=== PATIENT | male | born 1930 | race African-American/Black ===

== ENCOUNTER 2021-03-06 22:48 | Inpatient (IN) | payer MEDICARE ==
[2021-03-06] MEDS ORDERED: Propofol 1,000 MG/100 ML VIAL IV ONE (22:56)
[2021-03-06] MEDS ORDERED: Fentanyl CADD 100 ML IV SCH (23:00)
[2021-03-07] MEDS ORDERED: Furosemide 40 MG/4 ML VIAL ONE (00:12)
[2021-03-07] MEDS ORDERED: Aspirin 300 MG Suppository ONE (00:12)
[2021-03-07] MEDS ORDERED: Ondansetron PF 4 MG/2 ML Vial IVP PRN (01:03)
[2021-03-07] MEDS ORDERED: Ondansetron ODT 4 MG TAB PO PRN (01:03)
[2021-03-07] MEDS ORDERED: Acetaminophen 325 MG TAB PO PRN (01:03)
[2021-03-07] MEDS ORDERED: Acetaminophen 650 MG Suppository PR PRN (01:03)
[2021-03-07] MEDS ORDERED: Morphine 2 MG/ML VIAL SLOW IVP PRN (01:15)
[2021-03-07] MEDS ORDERED: Dextrose 5 % And 0.9 % NaCl 1,000 ML IV SCH (01:15)
[2021-03-07] MEDS ORDERED: Propofol BOLUS 1,000 MG/100 ML VIAL IV PRN (01:15)
[2021-03-07] MEDS ORDERED: DISCONTINUE PREVIOUS NARCOTIC PAIN MEDICATIONS AND BENZODIAZEPINES FS SCH (01:15)
[2021-03-07] MEDS ORDERED: Fentanyl BOLUS 250 ML IVPB PRN (01:15)
[2021-03-07] MEDS ORDERED: Propofol 1,000 MG/100 ML VIAL IV PRN (01:15)
[2021-03-07] MEDS ORDERED: Ventilator Sedation Protocol 1 EACH FS SCH (01:30)
[2021-03-07 02:52] LABS: Actual Bicarbonate (HCO3a) 19.4 mEq/L (22-28); Base Excess (BEa) -4.7 mEq/L (-2.0 to +3.0); CO2 Tension 32.5 mmHg (35.0-45.0); Calcium, Ionized (arterial) 1.15 mmol/L (1.12-1.30); Hemoglobin (Hb) 10.3 g/dL (14.0-18.0); O2 Tension (PaO2), arterial 77.7 mmHg (> 60.0); Potassium - ABG Lab 5.17 mmol/L (3.70-5.30); pH, Arterial 7.39 (7.35-7.45)
[2021-03-07 02:53] LABS: ALV-art Gradient 309.475 mmHg (0-20); Puncture Site LRA
[2021-03-07] MEDS: Piperacillin/Tazobactam 3.375 GM in Sodium Chloride 0.9% 100 ML IVPB SCH ×4 (02:53→20:38)
[2021-03-07 03:01] LABS: #Lymphocytes 0.6 thou/uL (1.20-3.40); #Neutrophils 12.4 thou/uL (1.40-6.50); %Basophils 0.3 % (0.0-1.0); %Eosinophils 0.1 % (0.0-10.0); %Monocytes 7.4 % (0.0-10.0); %Neutrophils 88.3 % (42.0-75.0); Hemoglobin 9.7 g/dL (14.0-18.0); Mean Corpuscular HGB CONC 31.2 g/dL (32.0-36.0); Mean Corpuscular Hemoglobin 27.8 pg (27.0-31.0); Mean Corpuscular Volume 89.3 fL (78.0-98.0); Mean Platelet Volume 8.7 fL (7.4-10.4); Platelet Count 182 thou/uL (130-400); Red Blood Cell (RBC) Count 3.47 mill/uL (4.70-6.10)
[2021-03-07 03:23] LABS: Lactic Acid 1.9 mmol/L (0.5-2.2)
[2021-03-07] MEDS: Azithromycin 500 MG in Sodium Chloride 0.9% 250 ML 250 ML IVPB SCH (03:39)
[2021-03-07 03:42] LABS: Troponin I 11.677 ng/mL (< 0.028)
[2021-03-07 03:52] LABS: Anion Gap 17 mmol/L (10-20); BUN (Urea Nitrogen) 47 mg/dL (8.4-25.7); Calc. Creatinine Clearance 11 mL/min (70-130); Calcium 8.5 mg/dL (7.8-10.44); Carbon Dioxide 20 mmol/L (23-31); Chloride 107 mmol/L (98-107); Glucose 162 mg/dL (83-110); Potassium 5.3 mmol/L (3.5-5.1); Sodium 139 mmol/L (136-145)
[2021-03-07] MEDS ORDERED: Heparin 25,000 units/D5W 500 ML IVPB SCH (04:00)
[2021-03-07] MEDS: Heparin 25,000 units/D5W 500 ML IV SCH (05:36)
[2021-03-07] MEDS: Heparin 10,000 UNITS/ 10 ML VIAL SLOW IVP SCH (05:52)
[2021-03-07] MEDS ORDERED: Famotidine/PF 20 mg/2ml Vial SLOW IVP SCH (09:00)
[2021-03-07] MEDS ORDERED: Enoxaparin Sodium 40 MG/0.4 ML SYRINGE SC SCH (09:00)
[2021-03-07] MEDS: Famotidine/PF 20 mg/2ml Vial SLOW IVP SCH (09:19)
[2021-03-07] MEDS ORDERED: Vecuronium 10 MG VIAL IVP PRN (10:59)
[2021-03-07] MEDS ORDERED: Vecuronium 10 MG VIAL ONE (11:28)
[2021-03-07 12:50] LABS: Pleural Fluid, Protein 3.6 g/dL
[2021-03-07 12:56] LABS: RBC Count-Automated (BF) 14321 /cu.mm; WBC/Nucleated-Auto (BF) 1007 uL
[2021-03-07 12:58] LABS: Anion Gap 17 mmol/L (10-20); BUN (Urea Nitrogen) 50 mg/dL (8.4-25.7); Calc. Creatinine Clearance 10 mL/min (70-130); Calcium 8.2 mg/dL (7.8-10.44); Carbon Dioxide 20 mmol/L (23-31); Chloride 108 mmol/L (98-107); Glucose 111 mg/dL (83-110); Potassium 5.5 mmol/L (3.5-5.1); Sodium 139 mmol/L (136-145)
[2021-03-07 13:19] LABS: BF Color Pink; Body Fluid Source Thoracentesis Fluid; Clarity Cloudy/Turbid (Clear); Tube # EDTA
[2021-03-07 13:25] LABS: BF Segmented Neutrophils 15 %; Cell Count Non Hematic 30 %; Lymphocytes 55 %
[2021-03-07] MEDS ORDERED: Amlodipine 10 MG TAB PO SCH (14:45)
[2021-03-07] MEDS: Albumin 25% 25 GM/100 ML BOT IVPB SCH ×2 (14:58→20:43)
[2021-03-07 15:06] LABS: Anion Gap 19 mmol/L (10-20); BUN (Urea Nitrogen) 52 mg/dL (8.4-25.7); Calc. Creatinine Clearance 9 mL/min (70-130); Calcium 8.7 mg/dL (7.8-10.44); Carbon Dioxide 18 mmol/L (23-31); Chloride 108 mmol/L (98-107); Glucose 128 mg/dL (83-110); Potassium 5.5 mmol/L (3.5-5.1); Sodium 139 mmol/L (136-145)
[2021-03-07 15:55] LABS: Bilirubin Negative (Negative); Blood, Urine 2+ (Negative); Clarity Turbid (Clear); Glucose, Urine (Dipstick) Normal (Negative); Ketone, Urine Negative (Negative); Leukocyte 500 Leu/uL (Negative); Nitrite Negative (Negative); Protein, Urine (Dipstick) 70 mg/dL (Neg-Trace); RBC/HPF 0-3 HPF (0-3); Specific Gravity, Urine 1.012 (1.002-1.036); Squamous Epithelial 0-3 HPF (0-3); Urobilinogen Normal mg/dL (Less than 2); pH, Urine 5.5 (5.0-9.0)
[2021-03-07 15:57] LABS: Bacteria/HPF 1+ HPF (None Seen)
[2021-03-07 16:08] LABS: Creatinine, Urine 86.71 mg/dL (63-166)
[2021-03-07 18:18] LABS: Anion Gap 20 mmol/L (10-20); BUN (Urea Nitrogen) 53 mg/dL (8.4-25.7); Calc. Creatinine Clearance 9 mL/min (70-130); Calcium 8.6 mg/dL (7.8-10.44); Carbon Dioxide 18 mmol/L (23-31); Chloride 108 mmol/L (98-107); Glucose 130 mg/dL (83-110); Potassium 5.6 mmol/L (3.5-5.1); Sodium 140 mmol/L (136-145)
[2021-03-07] MEDS: Lorazepam 2 MG/ML VIAL SLOW IVP PRN (22:28)
[2021-03-07 22:43] LABS: Anion Gap 22 mmol/L (10-20); BUN (Urea Nitrogen) 54 mg/dL (8.4-25.7); Calc. Creatinine Clearance 9 mL/min (70-130); Calcium 8.4 mg/dL (7.8-10.44); Carbon Dioxide 18 mmol/L (23-31); Chloride 107 mmol/L (98-107); Glucose 120 mg/dL (83-110); Potassium 5.7 mmol/L (3.5-5.1); Sodium 141 mmol/L (136-145)
[2021-03-08] MEDS: Piperacillin/Tazobactam 3.375 GM in Sodium Chloride 0.9% 100 ML IVPB SCH ×4 (02:47→21:05)
[2021-03-08] MEDS: Azithromycin 500 MG in Sodium Chloride 0.9% 250 ML 250 ML IVPB SCH (03:32)
[2021-03-08] MEDS: Albumin 25% 25 GM/100 ML BOT IVPB SCH ×2 (03:32→08:28)
[2021-03-08 04:26] LABS: #Lymphocytes 0.6 thou/uL (1.20-3.40); #Monocytes 1.1 thou/uL (0.11-0.59); #Neutrophils 11.2 thou/uL (1.40-6.50); %Basophils 0.2 % (0.0-1.0); %Eosinophils 0.1 % (0.0-10.0); %Lymphocytes 4.6 % (21.0-51.0); %Monocytes 8.2 % (0.0-10.0); %Neutrophils 86.9 % (42.0-75.0); Hemoglobin 8.1 g/dL (14.0-18.0); Mean Corpuscular HGB CONC 30.8 g/dL (32.0-36.0); Mean Corpuscular Hemoglobin 27.4 pg (27.0-31.0); Mean Platelet Volume 9.7 fL (7.4-10.4); Platelet Count 139 thou/uL (130-400); Red Blood Cell (RBC) Count 2.96 mill/uL (4.70-6.10); White Blood Cell (WBC) Count 12.9 thou/uL (4.8-10.8)
[2021-03-08 04:49] LABS: Anion Gap 23 mmol/L (10-20); BUN (Urea Nitrogen) 58 mg/dL (8.4-25.7); Calc. Creatinine Clearance 8 mL/min (70-130); Calcium 8.8 mg/dL (7.8-10.44); Carbon Dioxide 15 mmol/L (23-31); Chloride 108 mmol/L (98-107); Glucose 114 mg/dL (83-110); Potassium 5.3 mmol/L (3.5-5.1); Sodium 141 mmol/L (136-145)
[2021-03-08] MEDS: Lorazepam 2 MG/ML VIAL SLOW IVP PRN (05:25)
[2021-03-08] MEDS: Heparin 10,000 UNITS/ 10 ML VIAL SLOW IVP SCH (05:54)
[2021-03-08 07:58] LABS: Actual Bicarbonate (HCO3a) 17.3 mEq/L (22-28); Base Excess (BEa) -6.1 mEq/L (-2.0 to +3.0); CO2 Tension 26.8 mmHg (35.0-45.0); Calcium, Ionized (arterial) 1.09 mmol/L (1.12-1.30); Carboxyhemoglobin (COHb) 0.2 gm% (0.0-3.0); Hemoglobin (Hb) 8.5 g/dL (14.0-18.0); Potassium - ABG Lab 5.34 mmol/L (3.70-5.30); pH, Arterial 7.43 (7.35-7.45)
[2021-03-08 07:59] LABS: O2 Tension (PaO2), arterial 49.1 mmHg (> 60.0); Puncture Site LRA
[2021-03-08] MEDS: Famotidine/PF 20 mg/2ml Vial SLOW IVP SCH (08:24)
[2021-03-08] MEDS: Amlodipine 10 MG TAB PER TUBE SCH (08:25)
[2021-03-08 13:14] LABS: PTT Greater than 250.0 sec (22.9-36.1)
[2021-03-08] MEDS: Heparin 25,000 units/D5W 500 ML IV SCH (15:51)
[2021-03-09] MEDS: Piperacillin/Tazobactam 3.375 GM in Sodium Chloride 0.9% 100 ML IVPB SCH ×3 (02:00→14:30)
[2021-03-09] MEDS: Azithromycin 500 MG in Sodium Chloride 0.9% 250 ML 250 ML IVPB SCH (03:30)
[2021-03-09 03:41] LABS: Anion Gap 23 mmol/L (10-20); BUN (Urea Nitrogen) 69 mg/dL (8.4-25.7); Calc. Creatinine Clearance 7 mL/min (70-130); Calcium 8.3 mg/dL (7.8-10.44); Carbon Dioxide 15 mmol/L (23-31); Chloride 107 mmol/L (98-107); Glucose 103 mg/dL (83-110); Potassium 5.1 mmol/L (3.5-5.1); Sodium 140 mmol/L (136-145)
[2021-03-09 04:39] LABS: Band 3 % (5-11); Hemoglobin 7.5 g/dL (14.0-18.0); Large Platelets SLIGHT; Lymphocytes 10 % (21-51); MDiff Complete? YES; Mean Corpuscular HGB CONC 33.1 g/dL (32.0-36.0); Mean Corpuscular Hemoglobin 29.1 pg (27.0-31.0); Mean Corpuscular Volume 87.9 fL (78.0-98.0); Mean Platelet Volume 10.5 fL (7.4-10.4); Monocytes 1 % (0-10); Neutrophil 86 % (42-75); Platelet Count 112 thou/uL (130-400); Platelet Morphology Comment Appears Decreased; RBC Distribution Width 12.1 % (11.5-14.5); Red Blood Cell (RBC) Count 2.59 mill/uL (4.70-6.10); Schistocytes SLIGHT = 2-5 cells (100X) (0-1/hpf); White Blood Cell (WBC) Count 16.7 thou/uL (4.8-10.8)
[2021-03-09 07:04] LABS: Actual Bicarbonate (HCO3a) 17.8 mEq/L (22-28); Base Excess (BEa) -5.3 mEq/L (-2.0 to +3.0); CO2 Tension 26.1 mmHg (35.0-45.0); Calcium, Ionized (arterial) 1.07 mmol/L (1.12-1.30); Carboxyhemoglobin (COHb) 0.1 gm% (0.0-3.0); Hemoglobin (Hb) 8.2 g/dL (14.0-18.0); O2 Tension (PaO2), arterial 80.3 mmHg (> 60.0); Potassium - ABG Lab 4.65 mmol/L (3.70-5.30); pH, Arterial 7.45 (7.35-7.45)
[2021-03-09 07:05] LABS: Puncture Site RBA
[2021-03-09 07:06] LABS: ALV-art Gradient 172.275 mmHg (0-20)
[2021-03-09] MEDS: Amlodipine 10 MG TAB PER TUBE SCH (08:09)
[2021-03-09] MEDS: Famotidine/PF 20 mg/2ml Vial SLOW IVP SCH (08:10)
[2021-03-09] MEDS: Piperacillin/Tazobactam 2.25 GM in Sodium Chloride 0.9% 100 ML IVPB SCH ×2 (14:20→21:28)
[2021-03-09] MEDS: Heparin 10,000 UNITS/ 10 ML VIAL SLOW IVP SCH (17:21)
[2021-03-10] MEDS: Piperacillin/Tazobactam 2.25 GM in Sodium Chloride 0.9% 100 ML IVPB SCH ×4 (03:00→20:17)
[2021-03-10] MEDS: Azithromycin 500 MG in Sodium Chloride 0.9% 250 ML 250 ML IVPB SCH (03:45)
[2021-03-10 06:11] LABS: Hemoglobin 7.8 g/dL (14.0-18.0); Mean Corpuscular HGB CONC 33.3 g/dL (32.0-36.0); Mean Corpuscular Hemoglobin 29.1 pg (27.0-31.0); Mean Corpuscular Volume 87.3 fL (78.0-98.0); Mean Platelet Volume 11.4 fL (7.4-10.4); Platelet Count 111 thou/uL (130-400); RBC Distribution Width 12.1 % (11.5-14.5); Red Blood Cell (RBC) Count 2.68 mill/uL (4.70-6.10); White Blood Cell (WBC) Count 17.4 thou/uL (4.8-10.8)
[2021-03-10 06:22] LABS: Anion Gap 25 mmol/L (10-20); BUN (Urea Nitrogen) 85 mg/dL (8.4-25.7); Calc. Creatinine Clearance 7 mL/min (70-130); Calcium 8.8 mg/dL (7.8-10.44); Carbon Dioxide 12 mmol/L (23-31); Chloride 109 mmol/L (98-107); Glucose 128 mg/dL (83-110); Sodium 142 mmol/L (136-145)
[2021-03-10 07:14] LABS: Actual Bicarbonate (HCO3a) 16.4 mEq/L (22-28); Base Excess (BEa) -7.4 mEq/L (-2.0 to +3.0); CO2 Tension 27.1 mmHg (35.0-45.0); Calcium, Ionized (arterial) 1.13 mmol/L (1.12-1.30); Carboxyhemoglobin (COHb) 0.3 gm% (0.0-3.0); Hemoglobin (Hb) 8.3 g/dL (14.0-18.0); O2 Tension (PaO2), arterial 71.5 mmHg (> 60.0); Potassium - ABG Lab 3.87 mmol/L (3.70-5.30)
[2021-03-10 07:15] LABS: ALV-art Gradient 179.825 mmHg (0-20); Puncture Site RRA
[2021-03-10] MEDS: Amlodipine 10 MG TAB PER TUBE SCH (08:56)
[2021-03-10] MEDS: Enoxaparin Sodium 30 MG/0.3 ML SYRINGE SC SCH (08:56)
[2021-03-10] MEDS: Famotidine/PF 20 mg/2ml Vial SLOW IVP SCH (08:57)
[2021-03-10 12:29] VITALS: BMI 18.0
[2021-03-11] MEDS: Piperacillin/Tazobactam 2.25 GM in Sodium Chloride 0.9% 100 ML IVPB SCH ×3 (01:51→14:28)
[2021-03-11 03:40] LABS: #Lymphocytes 0.8 thou/uL (1.20-3.40); #Monocytes 1.1 thou/uL (0.11-0.59); %Basophils 0.1 % (0.0-1.0); %Eosinophils 0.2 % (0.0-10.0); %Monocytes 6.6 % (0.0-10.0); %Neutrophils 88.1 % (42.0-75.0); Hemoglobin 7.6 g/dL (14.0-18.0); Mean Corpuscular Hemoglobin 28.6 pg (27.0-31.0); Mean Corpuscular Volume 86.8 fL (78.0-98.0); Mean Platelet Volume 11.4 fL (7.4-10.4); Platelet Count 94 thou/uL (130-400); RBC Distribution Width 12.3 % (11.5-14.5); Red Blood Cell (RBC) Count 2.66 mill/uL (4.70-6.10); White Blood Cell (WBC) Count 15.9 thou/uL (4.8-10.8)
[2021-03-11 03:57] LABS: Anion Gap 24 mmol/L (10-20); BUN (Urea Nitrogen) 101 mg/dL (8.4-25.7); Calc. Creatinine Clearance 6 mL/min (70-130); Calcium 8.6 mg/dL (7.8-10.44); Carbon Dioxide 14 mmol/L (23-31); Chloride 109 mmol/L (98-107); Glucose 137 mg/dL (83-110); Potassium 3.8 mmol/L (3.5-5.1); Sodium 143 mmol/L (136-145)
[2021-03-11] MEDS: Lorazepam 2 MG/ML VIAL SLOW IVP PRN (07:54)
[2021-03-11] MEDS: Amlodipine 10 MG TAB PER TUBE SCH (08:04)
[2021-03-11] MEDS: Famotidine/PF 20 mg/2ml Vial SLOW IVP SCH (08:05)
[2021-03-11] MEDS: Enoxaparin Sodium 30 MG/0.3 ML SYRINGE SC SCH (08:05)
[2021-03-11 08:06] VITALS: BP 130/57
[2021-03-11] MEDS ORDERED: Heparin 5,000 UNITS/ML VIAL SC SCH (09:00)
[2021-03-11 17:08] VITALS: TEMP 97.7
== END 2021-03-11 18:21 | disposition hospice, inpatient (51) | DRG 870 ==
LOC: ERS 22:48 → CCU 23:58
PROVIDERS: ADMIT Student in an Organized Health Care Education/Training Program; ATTEND Hospitalist
PROC: 5A1955Z Respiratory Ventilation, Greater than 96 Consecutive Hours (ICD-10-PCS; principal; 2021-03-06)
PROC: 0W9930Z Drainage of Right Pleural Cavity with Drainage Device, Percutaneous Approach (ICD-10-PCS; 2021-03-07)
PROC: 0B918ZZ Drainage of Trachea, Via Natural or Artificial Opening Endoscopic (ICD-10-PCS; 2021-03-07)
DX: A41.9 Sepsis, unspecified organism (principal); J96.01 Acute respiratory failure with hypoxia; I21.4 Non-ST elevation (NSTEMI) myocardial infarction; N17.0 Acute kidney failure with tubular necrosis; Z66 Do not resuscitate; Z51.5 Encounter for palliative care; J18.9 Pneumonia, unspecified organism; J90 Pleural effusion, not elsewhere classified; C18.9 Malignant neoplasm of colon, unspecified; R64 Cachexia; C78.7 Secondary malignant neoplasm of liver and intrahepatic bile duct; N13.39 Other hydronephrosis; N20.1 Calculus of ureter; T17.590A Other foreign object in bronchus causing asphyxiation, initial encounter; I42.9 Cardiomyopathy, unspecified; Z68.1 Body mass index [BMI] 19.9 or less, adult; I13.0 Hypertensive heart and chronic kidney disease with heart failure and stage 1 through stage 4 chronic kidney disease, or unspecified chronic kidney disease; E87.2 Acidosis; F03.90 Unspecified dementia, unspecified severity, without behavioral disturbance, psychotic disturbance, mood disturbance, and anxiety; K56.41 Fecal impaction; E87.5 Hyperkalemia; I25.10 Atherosclerotic heart disease of native coronary artery without angina pectoris; N18.9 Chronic kidney disease, unspecified; D64.9 Anemia, unspecified; I50.9 Heart failure, unspecified; H54.7 Unspecified visual loss; Z88.0 Allergy status to penicillin; Z79.82 Long term (current) use of aspirin
CPT/HCPCS: 31624; 36415; 36416; 36600; 71045; 76770; 80048; 81001; 82150; 82570; 82805; 82945; 83605; 83615; 83880; 83986; 84157; 84300; 84478; 84484; 85025; 85060; 85730; 87070; 87116; 87205; 87206; 88112; 88305; 89051; 93005; 93306; 94003; 96365; 96366; 96368; 96375; J0456; J1644; J1650; J1940; J2060; J2543; J2704; J3490; J7050; P9047; S0028

== ENCOUNTER 2021-03-11 18:34 | Inpatient (IN) | payer OTHER ==
[2021-03-11] MEDS ORDERED: Bisacodyl 10 MG SUPP PR PRN (18:49)
[2021-03-11] MEDS ORDERED: Ondansetron PF 4 MG/2 ML Vial IVP PRN (19:00)
[2021-03-11] MEDS ORDERED: Haloperidol Lactate 5 MG/ML VIAL SLOW IVP PRN (19:00)
[2021-03-11] MEDS ORDERED: Acetaminophen 650 MG Suppository PR PRN (19:00)
[2021-03-11] MEDS ORDERED: Scopolamine 1.5 mg/72 hour Patch TOP PRN (19:00)
[2021-03-11 19:53] VITALS: BMI 18.1
[2021-03-11] MEDS: Lorazepam 2 MG/ML VIAL SLOW IVP PRN (21:20)
[2021-03-12] MEDS: Lorazepam 2 MG/ML VIAL SLOW IVP PRN ×2 (00:55→12:17)
[2021-03-12] MEDS: Morphine 4 MG/ML VIAL SLOW IVP PRN ×2 (01:06→12:17)
[2021-03-12 07:32] VITALS: TEMP 98.2
[2021-03-12 10:57] VITALS: BP 126/55
== END 2021-03-12 15:40 | disposition expired | DRG 208 ==
LOC: CCU 18:34
PROVIDERS: ADMIT Family Medicine; ATTEND Family Medicine
PROC: 5A1935Z Respiratory Ventilation, Less than 24 Consecutive Hours (ICD-10-PCS; principal; 2021-03-11)
PROC: 0BH17EZ Insertion of Endotracheal Airway into Trachea, Via Natural or Artificial Opening (ICD-10-PCS; 2021-03-11)
DX: J96.01 Acute respiratory failure with hypoxia (principal); I21.4 Non-ST elevation (NSTEMI) myocardial infarction; K55.069 Acute infarction of intestine, part and extent unspecified; N17.9 Acute kidney failure, unspecified; Z51.5 Encounter for palliative care; I11.0 Hypertensive heart disease with heart failure; I50.9 Heart failure, unspecified; F03.90 Unspecified dementia, unspecified severity, without behavioral disturbance, psychotic disturbance, mood disturbance, and anxiety; Z85.038 Personal history of other malignant neoplasm of large intestine; H54.7 Unspecified visual loss; Z79.82 Long term (current) use of aspirin; Z88.0 Allergy status to penicillin; K76.9 Liver disease, unspecified
CPT/HCPCS: 94003; J2060; J2270